=== PATIENT | male | born 1985 | race Caucasian/White ===

== ENCOUNTER 2021-06-19 10:51 | Emergency (ER) | payer BC ==
[2021-06-19 11:58] LABS: HEMOGLOBIN 17.5 gm/dl (14.0-17.5); RED BLOOD COUNT 5.63 M/UL (4.20-5.50); WHITE BLOOD COUNT 7.8 K/UL (4.5-11.0)
[2021-06-19 12:24] LABS: BUN/CREATININE RATIO 8 (0-10)
[2021-06-19] MEDS ORDERED: ZOFRAN ODT 4 MG4 MG GT (13:12)
[2021-06-19] MEDS ORDERED: PEPCID40 MG PO (13:12)
== END 2021-06-19 13:07 | disposition home or self-care (01) ==
LOC: ER1 10:51
PROVIDERS: Physician Assistant Medical
DX: R10.9 Unspecified abdominal pain (principal); R11.0 Nausea; F17.210 Nicotine dependence, cigarettes, uncomplicated; Z20.822 Contact with and (suspected) exposure to COVID-19
CPT/HCPCS: 80053; 81001; 83690; 85025; 99284; U0002